=== PATIENT | female | born 1995 | race Caucasian/White ===

== ENCOUNTER 2020-10-07 16:26 | Emergency (ER) | payer OTHER, MEDICAID ==
[~2020-10-07] VITALS: Ht 152.4 cm; Wt 59.0 kg
[2020-10-07 17:57] LABS: ABSOLUTE NEUTROPHILS 4.6 thou/uL (1.4-8.2); BASOPHILS 0.9 % (0.0-2.0); EOSINOPHILS 10.4 % (0.0-3.0); HEMATOCRIT 40.9 % (37.0-47.0); LYMPHOCYTES 22.5 % (24.0-44.0); MCH 27.1 pg (26.0-34.0); MCHC 31.9 g/dL (28.0-37.0); MONOCYTES 4.7 % (1.0-8.0); PLATELET COUNT 253 thou/uL (150-400); POLYS 61.5 % (36.0-66.0); RBC 4.82 mil/uL (4.20-5.00); RDW 13.8 % (10.5-14.5); WBC 7.5 thou/uL (4.0-11.0)
[2020-10-07 18:15] LABS: ANION GAP 8 mmol/L (7-16); BUN 11 mg/dL (7-18); CHLORIDE 105 mmol/L (98-107); CO2 28 mmol/L (21-32); CREATININE 0.9 mg/dL (0.6-1.0); GLUCOSE 87 mg/dL (74-106); POTASSIUM 3.9 mmol/L (3.5-5.1); SODIUM 141 mmol/L (136-145)
[2020-10-07] MEDS ORDERED: TRAMADOL 50 MG50 MG PO (19:43)
[2020-10-07 19:46] VITALS: BP 128/67
== END 2020-10-07 19:46 | disposition home or self-care (01) ==
LOC: ER 16:26
PROVIDERS: Emergency Medicine
DX: R51.9 Headache, unspecified (principal); H53.8 Other visual disturbances